=== PATIENT | male | born 1970 | race Caucasian/White ===

== ENCOUNTER 2019-07-09 13:31 | Emergency (ER) | payer MEDICAID ==
[~2019-07-09] VITALS: Ht 175.3 cm; Wt 84.5 kg
[2019-07-09 14:37] VITALS: BP 132/103
[2019-07-09] MEDS ORDERED: ibuprofen tablet 400 MG TABLET PO ONE (16:40)
== END 2019-07-09 17:14 | disposition home or self-care (01) ==
LOC: ER 13:32
DX: M25.571 Pain in right ankle and joints of right foot (principal); Z98.890 Other specified postprocedural states
CPT/HCPCS: 73610; 99283